=== PATIENT | female | born 1955 | race Caucasian/White ===

== ENCOUNTER → 2022-11-16 09:28 | Outpatient (BNVA) | payer MEDICARE, BC, SELFPAY | PROVIDERS: Visit Provider Family Medicine | DX: M25.572 Pain in left ankle and joints of left foot (principal); M79.89 Other specified soft tissue disorders | CPT/HCPCS: 73610 ==

== ENCOUNTER 2023-06-11 06:00 | Outpatient (RCR) | payer MEDICARE, BC, SELFPAY | END 2023-06-20 23:59 | disposition home or self-care (01) | LOC: GPT 06:00 | PROVIDERS: Visit Provider Specialist | DX: M25.512 Pain in left shoulder (principal); R07.89 Other chest pain | CPT/HCPCS: 97110; 97140; 97162 ==

== ENCOUNTER 2023-06-21 06:00 | Outpatient (RCR) | payer MEDICARE, BC, SELFPAY | END 2023-07-20 23:59 | disposition home or self-care (01) | LOC: GPT 06:00 | PROVIDERS: Visit Provider Specialist | DX: M25.512 Pain in left shoulder (principal); R07.89 Other chest pain | CPT/HCPCS: 97110; 97112; 97140; 97164; 97530 ==

== ENCOUNTER 2023-07-21 06:00 | Outpatient (RCR) | payer MEDICARE, BC, SELFPAY | END 2023-08-20 23:59 | disposition home or self-care (01) | LOC: GPT 06:00 | PROVIDERS: Visit Provider Specialist | DX: M25.512 Pain in left shoulder (principal); R07.89 Other chest pain | CPT/HCPCS: 97110; 97112; 97140 ==

== ENCOUNTER 2023-08-21 06:00 | Outpatient (RCR) | payer MEDICARE, BC, SELFPAY | END 2023-09-19 23:59 | disposition home or self-care (01) | LOC: GPT 06:00 | PROVIDERS: Visit Provider Specialist | DX: M25.512 Pain in left shoulder (principal); R07.89 Other chest pain | CPT/HCPCS: 97110; 97112; 97140; 97530 ==

== ENCOUNTER 2023-09-20 06:00 | Outpatient (RCR) | payer MEDICARE, BC, SELFPAY | END 2023-10-03 23:59 | disposition home or self-care (01) | LOC: GPT 06:00 | PROVIDERS: Visit Provider Specialist | DX: R07.89 Other chest pain (principal); M25.519 Pain in unspecified shoulder | CPT/HCPCS: 97110; 97140; 97530 ==